=== PATIENT | female | born 1950 | race Caucasian/White ===

== ENCOUNTER 2021-03-02 10:52 | Emergency (ER) | payer MEDICARE, BC ==
[~2021-03-02] VITALS: Ht 162.6 cm; Wt 87.3 kg
--- NOTE | 2021-03-02 13:03 | NUR ---
PT COVID POSITIVE INFORMED DR. NEIL AND HEATH RN
[2021-03-02] MEDS ORDERED: CASIRIVIMAB/IMDEVIMAB inject. 10 ML in normal saline 100ml IV soln 100 ML IV ONE (13:10)
[2021-03-02 17:13] VITALS: BP 122/72
== END 2021-03-02 16:22 | disposition home or self-care (01) ==
LOC: ER 10:53
DX: U07.1 COVID-19 (principal); R51.9 Headache, unspecified; E07.9 Disorder of thyroid, unspecified
CPT/HCPCS: 87635; 99283; C9803; M0243; Q0244